=== PATIENT | male | born 1990 | race Caucasian/White ===

== ENCOUNTER 2021-02-25 15:16 | Emergency (ER) | payer OTHER ==
[~2021-02-25] VITALS: Ht 185.4 cm; Wt 11.3 kg
--- NOTE | 2021-02-25 15:16 | NUR ---
Patient to ER bed 6 to gown for evaluation. Side rails up. Report given to MAIKEL.
[2021-02-25 15:19] VITALS: BP_SYST 130
--- NOTE | 2021-02-25 15:20 | NUR ---
Note tyao in EDM - 02/25/21 at 1524 by JOHN [facility] up. Report given to Lucius GIBBONS.
--- NOTE | 2021-02-25 15:21 | NUR ---
DR POOL IN TO ASSESS
[2021-02-25] MEDS ORDERED: PHENYTOIN SODIUM 100 MG/2 ML VIAL (DILANTIN) IVP ONE (15:30)
--- NOTE | 2021-02-25 15:33 | NUR ---
SITTING UP TALKING ON PHONE, CALM, RESP UNLABORED , NO DISTRESS
[2021-02-25 16:07] LABS: BASOPHILS # (AUTO) 0.1 K/uL (0.0-0.2); BASOPHILS % (AUTO) 1.1 % (0.0-2.0); EOSINOPHILS # (AUTO) 0.2 K/uL (0.0-0.4); EOSINOPHILS % (AUTO) 3.2 % (0.0-4.0); HEMATOCRIT 43.6 % (36-54); HEMOGLOBIN 14.9 g/dL (14.0-18.0); LYMPHOCYTES # (AUTO) 2.3 K/uL (1.0-5.5); LYMPHOCYTES % (AUTO) 34.5 % (20.5-51.5); MEAN CORPUSCULAR HEMOGLOBIN 31 pg (27-31); MEAN CORPUSCULAR HGB CONC 34 % (32-36); MEAN CORPUSCULAR VOLUME 92 fL (79.0-98.0); MONOCYTES # (AUTO) 0.5 K/uL (0.0-1.0); MONOCYTES % (AUTO) 7.1 % (1.7-9.3); NEUTROPHILS # (AUTO) 3.5 K/uL (1.8-7.7); NEUTROPHILS % (AUTO) 54.1 % (40.0-70.0); PLATELET COUNT (AUTO) 264 K/uL (130-430); RED BLOOD CELL COUNT(AUTO) 4.73 MIL/uL (4.2-6.2); RED CELL DISTRIBUTION WIDTH 13.6 % (9.0-15.0); WHITE BLOOD COUNT (AUTO) 6.6 K/uL (4.8-10.8)
--- NOTE | 2021-02-25 16:25 | NUR ---
RT AT BEDSIDE, CALM, ALERT, NO DISTRESS
--- NOTE | 2021-02-25 16:59 | NUR ---
NO SEIZURE ACTIVITY, RESP UNLABORED
[2021-02-25 17:01] LABS: ALBUMIN 4.1 g/dL (3.4-4.8); CALCIUM 8.7 mg/dL (8.4-11.0); CREATININE 1.01 mg/dL (0.55-1.30); TOTAL BILIRUBIN 0.3 mg/dL (0.0-1.0)
[2021-02-25 17:40] LABS: PHENYTOIN (DILANTIN) 8.1 ug/mL (10.0-20.0); POTASSIUM 4.4 mmol/L (3.5-5.1)
[2021-02-25 18:27] VITALS: BP_SYST 141
--- NOTE | 2021-02-25 18:28 | NUR ---
Patient given written and verbal discharge instructions and verbalizes understanding. ER MD discussed with patient the results and treatment provided. Patient in stable condition. ID arm band removed. IV catheter removed intact and dressing applied, no active bleeding. Patient educated on pain management and to follow up with PMD. Pain Scale 0/10 Opportunity for questions provided and answered.
== END 2021-02-25 18:27 | disposition home or self-care (01) ==
LOC: SED 15:16
DX: R56.9 Unspecified convulsions (principal)
CPT/HCPCS: 36415; 80053; 80185; 83605; 85025; 96365; 99284; J1165